=== PATIENT | male | born 1950 | race Caucasian/White ===

== ENCOUNTER 2016-04-28 07:15 | Day surgery (SDC) | payer MEDICARE ==
[~2016-04-28] VITALS: Ht 175.3 cm; Wt 118.0 kg
[~2016-04-28 07:15] MED LIST: 0.9% Sodium Chloride 1,000 ML IV SCH; CRES20T PO; DEP500ER PO; GLIM2TAB PO; HYDR25TA4 PO; INSU100I13 SUBQ; KEP500TA PO; METF1000 PO; RANI150C4 PO; Sodium Chloride LOK Flush 10 mL Syringe IV PRN; fentaNYL-PF 50 mCg/mL 2 mL Inj IVPUSH PRN
[2016-04-28 07:48] VITALS: BP 172/97; PULSE 72; RESP 17; O2SAT 92
--- NOTE | 2016-04-28 08:16 | PCM.ENDEGD ---
EGD Date of Service: Apr 28, 2016 Physician Kobe Sosa MD Pre Procedure Diagnosis: Dysphagia Post Procedure Dx & Findings: Esophagitis and esophageal ulcer possible Smith's gastric erosion and duodenitis Procedure Esophagogastroduodenoscopy PROCEDURE IN DETAIL: The patient was placed in left lateral decubitus position. Bite block was placed. Scope lubricated, placed in posterior pharynx, passed through the cricopharyngeus and esophagus, slowly advanced the entire length of the gastric pouch, pylorus was identified, scope passed through the pylorus and descending portion of duodenum, withdrawn in the antrum, retroflexed upon itself for view of fundus and cardia. Scope was then withdrawn through the oropharynx. We introduced esophagus and around 40 cm from the Z line, we saw circumferential inflammation and edema with irregular Z line and probable Smith's. Clean base Ulceration 1/2 cm of the esophagus was also noted. Biopsies are obtained at the ulcer and at the Z line. The mucosa of the Smith 's was difficult to see due to the information. 2 cm hiatal hernia. Stomach showed normal rugae folds with normal-appearing mucosa except there were a couple of isolated gastric erosion on the body of the stomach. These were biopsied as well. Retroflexion was done. Stomach was easily inflated and deflated using air. We advanced to the distal duodenum. Duodenum showed isolated redness and irritation consistent with duodenitis. Biopsies were obtained. 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 Biopsy obtained. Esophageal ulcer above the Z line biopsy obtained Hiatal hernia 2 cm The gastric body erosion status post biopsy Duodenitis Recommendation Avoid NSAIDs Prilosec Presedation Assessment Risks and Benefits Informed consent was obtained from the patient after all risks and benefits including but not limited to drug reaction, infection, pain, bleeding, perforation, as well as alternatives were discussed. Patient monitoring Continuous pulse oximetry, cardiac monitoring, blood pressure monitoring, IV access, and oxygen at 2L per nasal cannula. Complications There were no periprocedural complications identified. Post Procedure Plan Post Procedure Recommendations 1. Restrict activities today. 2. Resume normal activities in the morning. 3. Resume medications. 4. GERD behavioral modification: - Avoid fatty, acidic, spicy, large meals - Do not lie down after meals - Do not eat or drink anything for at least 2 1/2 hours before going to bed at night - Discontinue tobacco and alcohol - Decrease or avoid caffeine - Avoid chocolate and mints - Decrease weight - Avoid aspirin and non steroidal anti-inflammatory agents (NSAID) such as Aleve, Advil, Mobic, Naproxen, Ibuprofen, etc 5. Add proton pump inhibitor. Take 30 minutes before 1st meal of the day. 6. Patient informed of normal post procedure side effects as bloating, drowsiness, blood streaking in the stool 7. If gastric biopsy reveal H.pylori, continue with appropriate treatment 8. If small bowel biopsy reveals celiac, continue with appropriate treatment 9. Please don't hesitate to call me with any questions Kobe oSsa MD Apr 28, 2016 08:16
[2016-04-28 08:50] VITALS: BP 157/91; PULSE 75; RESP 16; O2SAT 94
--- NOTE | 2016-04-28 08:51 | PCM.ENDCOL ---
Colonoscopy Date of Service: Apr 28, 2016 Physician Kobe Sosa MD Pre Procedure Diagnosis: Screening Post Procedure Dx & Findings: Polyp hemorrhoids diverticuli Procedure Colonoscopy Prep adequate Withdrawal 18 minutes PROCEDURE IN DETAIL: After unremarkable rectal examination of Olympus video colonoscope was inserted into patient's anal canal and was advanced to the cecum. Landmarks were Identified including the ileocecal valve and appendiceal orifice. Scope was withdrawn systematically. In the transverse colon there was a 3 mm polyp which was removed completely using cold snare. In the sigmoid colon there were several small diverticuli. In the rectum retroflexion was done which showed hemorrhoids anal canal was inspected carefully on the way out and hemorrhoids noted. The mucosa of the cecum, ascending, transverse, descending, sigmoid, rectal mucosa lined with whitish, pink, smooth, glistening, normal-appearing mucosa, normal fine branching, underlying vascularity, normal haustra. The patient tolerated procedure and was transported to observation area. Impression Polypx 1 status post complete removal Hemorrhoids Diverticuli Recommendation Repeat colonoscopy 5 years Diverticular diet Repeat EGD in 10 weeks after acid suppression to see if there is evidence of Smith's esophagus. Presedation Assessment Risks and Benefits Informed consent was obtained from the patient after all risks and benefits including but not limited to drug reaction, infection, pain, bleeding, perforation, as well as alternatives were discussed. Patient monitoring Continuous pulse oximetry, cardiac monitoring, blood pressure monitoring, IV access, and oxygen at 2L per nasal cannula. Periprocedural Fentanyl: Fentanyl 100mcg Incrementally Midazolam: Midazolam 5mg Incrementally Complications There were no periprocedural complications identified. Post Procedure Plan Post Procedure Recommendations 1. Restrict activities today. 2. Resume normal activities in the morning. 3. Resume medications. 4. Patient informed of normal post procedure side effects as bloating, drowsiness, blood streaking in the stool. 5. average risk CRCS. If colon polyps come back as: -Hyperplastic- can repeat colonoscopy in 10 years -Tubular adenoma- repeat colonoscopy in 5 years -Tubulovillous/villous adenoma- repeat colonoscopy in 3 years -If any dysplasia- return to clinic as soon as possible 6. Please don't hesitate to call me with any questions. Kobe Sosa MD Apr 28, 2016 08:51
[2016-04-28 09:06] VITALS: BP 162/83; PULSE 76; RESP 14; O2SAT 93
[2016-04-28 09:11] VITALS: BP 160/93; PULSE 70; RESP 20; O2SAT 94
--- NOTE | 2016-04-29 14:34 | PATH ---
SURGICAL PATHOLOGY Attending Physician:Kobe Sosa M.D. CASE STATUS: Signed Out PATIENT NAME: EDINSON WHITE PID: [id number] : 1950 DATE COLLECTED:04/28/2016 17:33 SPECIMEN: 1: Duodenum, Biopsy 2: Gastric, Biopsy 3: Esophagus, Biopsy 4: Colon, Biopsy CLINICAL HISTORY: ESOPHAGITIS,GERD 1).DUODENUM BIOPSY 2).GASTRIC FUNDUS EROSION BIOPSY 3).DISTAL ESOPHAGUS BIOPSY 4).TRANSVERSE COLON POLYP X1 FINAL DIAGNOSIS: 1.DUODENUM BIOPSY: DUODENAL MUCOSA WITH NO DIAGNOSTIC ALTERATIONS. Negative for inflammation, sprue, dysplasia, and malignancy. 2.GASTRIC FUNDUS EROSION BIOPSY: GASTRIC BODY MUCOSA WITH FOCAL EROSION. Negative for Helicobacter organisms. Negative for intestinal metaplasia. Negative for dysplasia and malignancy. 3.DISTAL ESOPHAGUS BIOPSY: NORMAL SQUAMOCOLUMNAR MUCOSA WITH NO DIAGNOSTIC ALTERATIONS. Negative for intestinal/Smith' s metaplasia. Negative for dysplasia and malignancy. 4.TRANSVERSE COLON POLYP: TUBULAR ADENOMA. ICD10 CODE K29.70 D12.3 GROSS DESCRIPTION: Received are four formalin-filled containers, each labeled with the patient' s name. 1. Received in formalin, labeled with the patient' s name and "duodenal BX", are two fragments of ortiz, soft tissue ranging in size from 0.1 x 0.1 x 0.1 cm to 0.2 x 0.1 x 0.1 cm. All fragments are totally submitted in cassette 1A. 2. Received in formalin, labeled with the patient' s name and "gastric fundus erosion BX", is one fragment of ortiz, soft tissue measuring 0.1 x 0.1 x 0.1 cm. The fragment is totally submitted in cassette 2A. 3. Received in formalin, labeled with the patient' s name and "distal esophagus BX", are two fragments of ortiz, soft tissue ranging in size from 0.1 x 0.1 x 0.1 cm to 0.2 x 0.2 x 0.1 cm. All fragments are totally submitted in cassette 3A. 4. Received in formalin, labeled with the patient' s name and "transverse colon polyp", are three fragments of ortiz, soft tissue ranging in size from 0.1 x 0.1 x 0.1 cm to 0.2 x 0.2 x 0.1 cm. All fragments are totally submitted in cassette 4A. ([id number]) MICRO DESCRIPTION: See diagnosis. ICD-9 CODES: CPT CODES: 1: 67197 2: 82787 3: 63747 4: 37763 Electronically Signed Out Starr Do MD [facility] [address], [place] [address] Technical component performed at [facility], [address], [place], [address]
[2016-07-11] MEDS ORDERED: DEP500ER PO (19:52)
[2016-07-11] MEDS ORDERED: METF500T4 PO (19:52)
[2016-07-14] MEDS ORDERED: CRES20T PO (06:40)
[2016-07-14] MEDS ORDERED: HYDR12.55 PO (06:40)
== END 2016-04-28 23:59 | disposition home or self-care (01) ==
LOC: END 07:15
PROVIDERS: ATTEND Internal Medicine
DX: Z12.11 Encounter for screening for malignant neoplasm of colon (principal); D12.3 Benign neoplasm of transverse colon; K57.90 Diverticulosis of intestine, part unspecified, without perforation or abscess without bleeding; K64.9 Unspecified hemorrhoids; K22.10 Ulcer of esophagus without bleeding; K44.9 Diaphragmatic hernia without obstruction or gangrene; K25.9 Gastric ulcer, unspecified as acute or chronic, without hemorrhage or perforation; K29.80 Duodenitis without bleeding; G40.909 Epilepsy, unspecified, not intractable, without status epilepticus; E11.9 Type 2 diabetes mellitus without complications; Z79.4 Long term (current) use of insulin; I10 Essential (primary) hypertension
CPT/HCPCS: 43239; 45385; 88305; 99153; G0500; J2250; J3010; J7030

== ENCOUNTER 2016-05-08 16:03 | Emergency (ER) | payer MEDICARE ==
[~2016-05-08] VITALS: Ht 172.7 cm; Wt 122.7 kg
[~2016-05-08 16:03] MED LIST changes: -0.9% Sodium Chloride 1,000 ML IV SCH; -DEP500ER PO; -METF1000 PO; -Sodium Chloride LOK Flush 10 mL Syringe IV PRN; -fentaNYL-PF 50 mCg/mL 2 mL Inj IVPUSH PRN
[2016-05-08 16:21] VITALS: BP 169/87; PULSE 85; RESP 16
--- NOTE | 2016-05-08 16:56 | ED.REPORT ---
HPI-General Illness Date of Service May 08, 2016 ED Provider: Rehan Roach MD Pt is a 65 y/o male w/ a hx of epilepsy on Keppra 500 mg BID for 2-3 years, HTN , presenting to the ED via EMS with his son due to grand-mal seizure-like activity onset about 16:00 today. The event was witnessed by his who is not in the room. She describes hand shaking, foaming at the mouth, bowel incontinence, likely bladder incontinence, tongue biting, and unresponsiveness, which lasted 30 seconds, causing him to fall from his chair. He is feeling very fatigued currently with an associated headache. He has a history of epilepsy since age 15 and normally has petite-mal seizures which involve hand shaking but he has experienced grand mal seizures with associated LOC previously similar to today's episode. He missed last night's dose of Keppra. Pt denies fever, chills, neck pain, confusion, CP, SOB, abdominal pain, head injury. He is not anticoagulated. He denies any illicit drug or alcohol use. Neurologist: Dr. Wilkinson (sp?) at [facility]. Nursing Notes Stated Complaint: SEIZURE Chief Complaint: Seizure Nursing Notes Reviewed: Yes Allergies: Coded Allergies: No Known Allergies (Unverified Allergy, Unknown, 04/03/14) Scheduled Glimepiride (Amaryl) 2 Mg Tablet 2 MG PO DAILY Insulin Glargine (Lantus U100 Solostar Insulin Pen) 100 Unit/1 Ml Insuln.pen 1 UNIT SUBQ BID Levetiracetam (Keppra) 500 Mg Tablet 1,000 MG PO DAILY Levetiracetam (Keppra) 750 Mg Tablet 750 MG PO BID Ranitidine (Ranitidine) 150 Mg Capsule 150 MG PO DAILY Rosuvastatin-Expunged Drug, Do Not Renew! (Crestor-Expunged Drug, Do Not Renew! ) 20 Mg Tablet 20 MG PO DAILY Miscellaneous Medications Hydrochlorothiazide-Expunged, Do Not Renew! (Hydrochlorothiazide-Expunged, Do Not Renew!) 25 Mg Tablet 12.5 MG PO General Time Seen by MD: 16:36 Chief Complaint Seizure Hx Obtained From: Patient, EMS Arrived By: Ambulance Sudden in Onset?: Yes Onset Occurred: 1 - 4 hours ago Symptom Duration: 1 - 15 minutes Location: : Head Quality: Aching Severity: Current: Moderate Severity: Maximum: Moderate Recent Healthcare: Previous diagnosis Similar Sx Previous: Yes Past Medical History Past Medical History Epilepsy on Keppra DM HTN GERD Arthritis Past Surgical History Appendectomy Torn ligaments Knee Smoking History Unknown if Ever Smoker Social History Other Social History: Good social support Ambulatory Status Independent Review of Systems Full Review of Systems Constitutional: Reports: Weakness - generalized, Denies: Chills, Fever Ears / Nose / Throat: Reports: Tongue pain, Denies: Throat pain, Throat swelling Respiratory: Denies: Non-productive cough, Shortness of breath Cardiovascular: Denies: Chest pain, Dyspnea on exertion GI: Denies: Abdominal pain, Diarrhea, Nausea, Vomiting Neurologic: Reports: Bladder dysfunction, Bowel dysfunction, Change LOC, Headache, Seizure, Denies: Confusion, Focal weakness, Numbness, Slurred speech, Syncope, Unable to speak, Vision change Complete sys rev & neg: except as marked. Physical Exam Vital Signs Vital Signs Date Time Temp Pulse Resp B/P Pulse Ox O2 Delivery O2 Flow Rate FiO2 05/08/16 18:32 36.8 78 18 159/89 Room Air 05/08/16 16:21 36.9 85 16 169/87 Room Air Initial VS: Reviewed, Vital signs abnormal Respiratory: Breath sounds normal, Clear to auscultation, No respiratory distress Cardiovascular: Regular rate & rhythm, Heart sounds normal, Intact distal pulses Abdomen / GI: Soft, Non-tender, No guarding, No rebound, No distention Skin: Warm, Dry, No cyanosis Psychiatric: Mood/affect normal, Behavior normal, Normal thought content General/Constitutional: Awake, Alert, No acute distress, Cooperative, Not toxic appearing Head / Eyes: Atraumatic, Normocephalic, PERRL, EOMI, No nystagmus ENT: Airway patent, Mucous membranes moist Bite maritza with dry blood about left lateral aspect of tongue Neck: Atraumatic, Supple, No meningismus, Full range of motion, Non-tender Lower Extremity / Pelvis / MS: No deformity, Neurologic intact, Vascular intact , No ligamentous injury, Tendon function NL, No compartment syndrome Abrasion over left lateral hip RLE normal Neurologic: Oriented X3, Speech NL, No motor deficits, No sensory deficits, CN II - XII intact, Cerebellar NL, Memory NL No facial droop Re-Eval/Medical Decision Med Decision/Clinical Course Pt is a 65 y/o male w/ a hx of epilepsy on Keppra 500 mg BID for 2-3 years, HTN , presenting to the ED via EMS with his son due to grand-mal seizure-like activity onset about 16:00 today. The event was witnessed by his who is not in the room. She describes hand shaking, foaming at the mouth, bowel incontinence, likely bladder incontinence, tongue biting, and unresponsiveness, which lasted 30 seconds, causing him to fall from his chair. He is feeling very fatigued currently with an associated headache. He has a history of epilepsy since age 15 and normally has petite-mal seizures which involve hand shaking but he has experienced grand mal seizures with associated LOC previously similar to today's episode. He missed last night's dose of Keppra. He did not have any trauma to his head and is not on any blood thinners. Through the emergency department the patient is alert/oriented 3, afebrile and no apparent distress. No meningismus or findings suggestive of acute meningitis. I do not feel that lumbar puncture is indicated. This is typical of one of the patient's seizures and he has not had any head trauma. Neurologic examination was not lateralizing. I see no indication for neuroimaging at this time. Patient was discussed with his neurology team at [facility]. Given the patient's weight he is on a very low-dose of Keppra. This accommodation with missed doses likely the cause of his seizure episode today. They recommend that we increase his Keppra dose to 750 mg. 750 mg of Keppra was administered here in the emergency department. I had initially ordered a Keppra level however neurologist at [facility] recommended that we did not obtain level as they would likely not be able to access this record at his next clinic appointment. They would prefer to obtain Keppra level there at that time. Time, I see no indication for admission or further workup. Patient is nontoxic, neurologically intact and well-appearing. He will call tomorrow to arrange for follow-up with his neurologist. Follow-up and return precautions were reviewed in detail and he was discharged in good condition. Time of Eval: 17:59 Evaluation: Mental status normal, Neurologic nonfocal Re-Evaluation/Progress Note: Pt rechecked. Informed pt of plan for treatment. Pt understands and agrees with plan for treatment. F/U instructions and RTER warnings given. All questions addressed. Consultation : Consulted With: Neurology Call Returned at: 17:54 Maintenance Mechanic Technician: Agrees with eval, Agrees with plan Note: Discussed case with [facility] neurology. Recommends increase Keppra to 750 mg BID and no need to draw labs or Keppra level at this time, they will do this. Counseled Regarding: Diagnosis, Need for follow-up, When/why to return to ED Discharge & Departure Primary Impression: Seizure Additional Impressions: Epilepsy Epilepsy type: unspecified Intractability: not intractable Status epilepticus: without status epilepticus Qualified Code: G40.909 - Epilepsy, unspecified, not intractable, without status epilepticus Noncompliance w/medication treatment due to intermit use of medication Postictal state Disposition: Home Discharge Condition All VS Reviewed: Yes Condition: Stable Additional Instructions: Thank you for seeking care at emergency room. It is difficult for us to make definitive diagnoses in the ED but we believe that you are experiencing breakthrough seizures related to low Keppra dose and missing a dose of your Keppra. Our primary goal today in the ED was to evaluate you for any life-threatening conditions. Your evaluation was reassuring. You will be discharged with a prescription for 750 mg tablets of Keppra, please take twice daily. You should follow-up with your primary doctor in the next week. These call first thing tomorrow morning to arrange for follow-up with your neurologist. You should return to the ED immediately if you develop recurrent seizures, headaches, numbness, tingling, confusion, weakness, fevers, vomiting, cough, shortness of breath, chest pain, lightheadedness or any other concerning signs or symptoms. Thank you for letting us partake in your care today. Referrals: Donna Paez (PCP) David Attestation Portions of this note were transcribed by Jair Parham. I, Dr. Roach personally performed the history, physical exam and medical decision-making; I reviewed and confirmed the accuracy of the information in the transcribed note. Signed by David Underwood, 05/08/16 - 1800 copies to: Donna Paez Beck O MD May 08, 2016 16:56 JAIR PARHAM May 08, 2016 17:47
[2016-05-08] MEDS ORDERED: 0.9% Sodium Chloride 1,000 ML IV ONE (17:52)
[2016-05-08] MEDS ORDERED: levETIRAcetam 500 mg Tablet PO ONE (18:00)
[2016-05-08] MEDS ORDERED: LEVE750T16 PO (18:01)
[2016-05-08 18:32] VITALS: BP 159/89; PULSE 78; RESP 18
[2016-07-11] MEDS ORDERED: DEP500ER PO (19:52)
[2016-07-11] MEDS ORDERED: METF500T4 PO (19:52)
[2016-07-14] MEDS ORDERED: HYDR12.55 PO (06:40)
[2016-07-14] MEDS ORDERED: CRES20T PO (06:40)
== END 2016-05-08 18:34 | disposition home or self-care (01) ==
LOC: EDBD 16:03 → SED 16:21
DX: G40.909 Epilepsy, unspecified, not intractable, without status epilepticus (principal); Z91.14 Patient's other noncompliance with medication regimen; E11.9 Type 2 diabetes mellitus without complications; I10 Essential (primary) hypertension; K21.9 Gastro-esophageal reflux disease without esophagitis; Z79.4 Long term (current) use of insulin

== ENCOUNTER 2016-07-14 07:50 | Day surgery (SDC) | payer MEDICARE ==
[~2016-07-14] VITALS: Ht 175.3 cm; Wt 117.9 kg
[~2016-07-14 07:50] MED LIST changes: +DEP500ER PO; +HYDR12.55 PO; +LEVE750T16 PO; +METF500T4 PO
[2016-07-14] MEDS ORDERED: 0.9% Sodium Chloride 1,000 ML IV PRN (07:51)
[2016-07-14] MEDS ORDERED: fentaNYL-PF 50 mCg/mL 2 mL Inj IVPUSH PRN (07:55)
[2016-07-14] MEDS ORDERED: Sodium Chloride LOK Flush 10 mL Syringe IV PRN (07:55)
[2016-07-14 08:16] VITALS: BP 148/83; PULSE 66; RESP 17; O2SAT 96
[2016-07-14] MEDS ORDERED: DEP500ER PO (08:23)
[2016-07-14 10:17] VITALS: BP 143/71; PULSE 57; RESP 16; O2SAT 97
--- NOTE | 2016-07-14 10:18 | PCM.ENDEGD ---
EGD Date of Service: July 14, 2016 Physician Kobe Sosa MD Pre Procedure Diagnosis: Smith's esophagus? Post Procedure Dx & Findings: Smith's esophagus gastritis nodule within the hiatal hernia Procedure Esophagogastroduodenoscopy PROCEDURE IN DETAIL: After proper sedation, Olympus video endoscope was inserted into patient's mouth and esophagus was successfully intubated. Scope introduced esophagus. Esophagus showed normal shiny whitish mucosa consistent with squamous cell component. Z line was not intact at 40 cm from the incisors. The inflammation has now disappeared. Ulceration is disappeared as well. There was a 2 cm hiatal hernia. Also there was evidence of Smith's esophagus about 2 cm. 4 quadrant biopsies obtained. Narrow banding use. No ulcer or erosion nodule mass noted. 2 cm hiatal hernia noted. Within the hiatal hernia, there was a centimeter prominent fold which was biopsied. At the GE junction, some scarring noted as well. The scope further advanced to the stomach. Stomach showed normal shiny mucosa with normal appearing rugae folds without any ulcer mass erosion. However in the antrum and body there was a area of redness edema erosion consistent with gastritis which was biopsied. Cardia fundus body antrum pylorus were all visualized. Retroflexion was done. Stomach was easily inflated and deflatable using air. Scope further events to the distal duodenum. Duodenum revealed normal villous structures with normal appearing folds without any mass ulcer erosion. Impression Smith's esophagus 2 cm Hiatal hernia with prominent fold. Gastritis Recommendation EGD 3 years. Continue acid suppression with PPI. Presedation Assessment Risks and Benefits Informed consent was obtained from the patient after all risks and benefits including but not limited to drug reaction, infection, pain, bleeding, perforation, as well as alternatives were discussed. Patient monitoring Continuous pulse oximetry, cardiac monitoring, blood pressure monitoring, IV access, and oxygen at 2L per nasal cannula. Periprocedural Fentanyl: Fentanyl 50mcg Incrementally Midazolam: Midazolam 3mg Incrementally Complications There were no periprocedural complications identified. Post Procedure Plan Post Procedure Recommendations 1. Restrict activities today. 2. Resume normal activities in the morning. 3. Resume medications. 4. GERD behavioral modification: - Avoid fatty, acidic, spicy, large meals - Do not lie down after meals - Do not eat or drink anything for at least 2 1/2 hours before going to bed at night - Discontinue tobacco and alcohol - Decrease or avoid caffeine - Avoid chocolate and mints - Decrease weight - Avoid aspirin and non steroidal anti-inflammatory agents (NSAID) such as Aleve, Advil, Mobic, Naproxen, Ibuprofen, etc 5. Add proton pump inhibitor. Take 30 minutes before 1st meal of the day. 6. Patient informed of normal post procedure side effects as bloating, drowsiness, blood streaking in the stool 7. If gastric biopsy reveal H.pylori, continue with appropriate treatment 8. If small bowel biopsy reveals celiac, continue with appropriate treatment 9. Please don't hesitate to call me with any questions Kobe Sosa MD July 14, 2016 10:18
[2016-07-14 10:29] VITALS: BP 164/67; PULSE 58; RESP 16; O2SAT 98
--- NOTE | 2016-07-15 11:17 | PATH ---
SURGICAL PATHOLOGY Attending Physician:Kobe Sosa M.D. CASE STATUS: Signed Out PATIENT NAME: EDINSON WHITE PID: [id number] : 1950 DATE COLLECTED:07/14/2016 15:11 SPECIMEN: 1: Gastric, Biopsy 2: Esophagus, Biopsy 3: Esophagus, Biopsy CLINICAL HISTORY: 1. GASTRIC BX 2. DISTAL ESOPHAGUS BXS 3. PROXIMAL FOLD OF DISTAL ESOPHAGUS BXS FINAL DIAGNOSIS: 1.GASTRIC BIOPSY: MINIMAL SUPERFICIAL CHRONIC GASTRITIS INVOLVING FUNDIC MUCOSA. Negative for evidence of Helicobacter. Negative for intestinal metaplasia. Negative for dysplasia and malignancy. 2.DISTAL ESOPHAGUS BIOPSIES: SQUAMOUS MUCOSA AND GASTRIC CARDIA-TYPE MUCOSA NEGATIVE FOR SPECIALIZED METAPLASIA OF PASTOR' S-TYPE ESOPHAGUS. Negative for dysplasia and malignancy. Negative for squamous intraepithelial eosinophils. 3.BIOPSY, PROXIMAL FOLD OF DISTAL ESOPHAGUS: FRAGMENT OF GASTRIC CARDIA-TYPE MUCOSA AND OXYNTIC-TYPE MUCOSA WITH CHRONIC INFLAMMATION MOST PROMINENT IN THE CARDIA MUCOSA. Negative for specialized metaplasia of Pastor' s-type esophagus. No squamous mucosa identified. Negative for dysplasia and malignancy. ICD10 code K29.70 GROSS DESCRIPTION: The specimen is received in three formalin filled containers labeled with the patient's name. 1). The specimen is sublabeled "gastric" and consists of a 0.5 x 0.2 x 0.2 CM portion of tissue which is entirely submitted in cassette 1A. 2). The specimen is sublabeled "distal esophagus" and consists of 2 portions of tissue which aggregate to 0.3 x 0.3 x 0.2 CM. The specimen is entirely submitted in cassette 2A. 3). The specimen is sublabeled "proximal fold of distal esophagus" and consists of 2 portions of tissue which aggregate to 0.2 x 0.2 x 0.2 CM. The specimen is entirely submitted in cassette 3A. 07/14/2016 [facility] MICRO DESCRIPTION: See diagnosis. ICD-9 CODES: CPT CODES: 1: 49133 2: 57443 3: 64942 Electronically Signed Out Isiah Durbin MD [facility] [address] [place] [address] Technical component performed at [facility], [facility] [address], [place], [address]
== END 2016-07-14 23:59 | disposition home or self-care (01) ==
LOC: END 07:50
PROVIDERS: ATTEND Internal Medicine
DX: K29.50 Unspecified chronic gastritis without bleeding (principal); K22.70 Barrett's esophagus without dysplasia; K44.9 Diaphragmatic hernia without obstruction or gangrene; G40.909 Epilepsy, unspecified, not intractable, without status epilepticus; E11.9 Type 2 diabetes mellitus without complications; I10 Essential (primary) hypertension; Z79.4 Long term (current) use of insulin
CPT/HCPCS: 43239; G0500; J7030